=== PATIENT | female | born 1990 | race Caucasian/White ===

== ENCOUNTER 2019-12-27 17:40 | Outpatient (RCR) | payer OTHER, SELFPAY | END 2020-03-23 23:59 | disposition home or self-care (01) | LOC: ANHLAB 17:40 | PROVIDERS: Visit Provider Obstetrics & Gynecology | DX: N92.6 Irregular menstruation, unspecified (principal) | CPT/HCPCS: 36415; 84702 ==

== ENCOUNTER 2020-02-04 11:12 | Outpatient (CLI) | payer OTHER, SELFPAY ==
[2020-02-04 12:48] LABS: Hematocrit 36.2 % (37.0-47.0); Hemoglobin 12.2 g/dL (12.0-15.0); Mean Corpuscular HGB Conc 33.7 g/dl (32-36); Mean Corpuscular Hemoglobin 30.8 pg (26-34); Mean Corpuscular Volume 91.4 fl (80-100); Mean Platelet Volume 9.8 fl (7.4-10.4); Platelet Count Result 222 k/mm3 (150-375); Red Blood Count 3.96 M/mm3 (4.2-5.4); Red Cell Distribution Width 13.5 % (11.5-14.5); White Blood Count 8.3 K/mm3 (4.5-10.0)
[2020-02-04 13:02] LABS: Glucose 1 Hour PP 50gm Dose 81 mg/dL
[2020-02-04 14:11] LABS: HIV 1/2 Ab P24 Ag Result Negative (Negative); Hepatitis B Surface Antigen Negative (Negative); Rubella IgG Antibody 25.3 IU/ML
[2020-02-05 09:48] LABS: Rapid Plasma Reagin Non-Reactive (NonReactive)
== END 2020-02-04 11:13 | disposition home or self-care (01) ==
PROVIDERS: Visit Provider Obstetrics & Gynecology
DX: Z34.02 Encounter for supervision of normal first pregnancy, second trimester (principal); Z3A.00 Weeks of gestation of pregnancy not specified
CPT/HCPCS: 36415; 82947; 84702; 85027; 85461; 86592; 86644; 86703; 86747; 86762; 86787; 87086; 87340; G0432

== ENCOUNTER 2020-02-18 14:42 | Outpatient (CLI) | payer OTHER, SELFPAY ==
--- NOTE | ~2020-02-18 | US_ITS ---
EXAMINATION: US OB <=14 wk fetus w TV DATE: 02/18/2020 15:33 INDICATION: Evaluate well-being. Routine care. TECHNIQUE: Real-time transabdominal obstetric ultrasound. FINDINGS: No prior studies for comparison. The uterus measures 14.5 x 10.3 x 9.2 cm. There is an intrauterine gestational sac, with pole i dentified. The crown rump length measures 7.4 cm, which correlates with a estimated gestational age of 13 weeks 4 days. heart tones are identified measuring 147. IMPRESSION: 1. SL IUP with an EGA of 13 weeks, 4 days (EDC by current ultrasound of 08/21/2020). Reviewed, dictated and finalized at location A. IMPRESSION: 1. SL IUP with an EGA of 13 weeks, 4 days (EDC by current ultrasound of 021).
== END 2020-02-18 14:43 | disposition home or self-care (01) ==
PROVIDERS: Visit Provider Obstetrics & Gynecology
DX: Z34.02 Encounter for supervision of normal first pregnancy, second trimester (principal); Z3A.13 13 weeks gestation of pregnancy
CPT/HCPCS: 76801; 76817

== ENCOUNTER 2020-05-30 15:47 | Outpatient (CLI) | payer OTHER, SELFPAY ==
[2020-05-30 17:36] LABS: Basophils Percent Auto 0.3 % (0.2-1.2); Eosinophils Absolute Auto 0.1 K/mm3 (0-0.3); Eosinophils Percent Auto 0.5 % (0-4.4); Hematocrit 32.9 % (37.0-47.0); Immature Granulocyte Absolute 0.04 K/mm3 (0.00-0.031); Immature Granulocyte Percent A 0.4 % (0-0.5); Lymphocytes Absolute Auto 2.07 K/mm3 (0.9-3.2); Lymphocytes Percent Auto 18.6 % (18.3-44.2); Mean Corpuscular HGB Conc 33.4 g/dl (32-36); Mean Corpuscular Hemoglobin 30.6 pg (26-34); Mean Corpuscular Volume 91.6 fl (80-100); Mean Platelet Volume 9.9 fl (7.4-10.4); Monocytes Absolute Auto 0.4 K/mm3 (0.1-0.6); Monocytes Percent Auto 3.2 % (2.6-8.5); Neutrophils Absolute Auto 8.6 K/mm3 (1.3-6.7); Platelet Count Result 232 k/mm3 (150-375); Red Blood Count 3.59 M/mm3 (4.2-5.4); Red Cell Distribution Width 13.4 % (11.5-14.5); White Blood Count 11.1 K/mm3 (4.5-10.0)
[2020-05-30 17:48] LABS: Glucose 1 Hour PP 50gm Dose 122 mg/dL
[2020-05-30 18:28] LABS: HIV 1/2 Ab P24 Ag Result Negative (Negative)
== END 2020-05-30 15:48 | disposition home or self-care (01) ==
LOC: ANHLAB 15:50
PROVIDERS: Visit Provider Obstetrics & Gynecology
DX: Z34.92 Encounter for supervision of normal pregnancy, unspecified, second trimester (principal); Z3A.00 Weeks of gestation of pregnancy not specified
CPT/HCPCS: 36415; 82947; 85025; 86703; G0432

== ENCOUNTER 2020-08-11 16:30 | Inpatient (IN) | payer OTHER, SELFPAY ==
[2020-08-11] VITALS (71 sets, daily range): BP systolic 63–132; BP diastolic 38–76; PULSE 62–109; TEMP 36.6; O2SAT 98–100; BMI 42.3
--- NOTE | 2020-08-11 17:09 | LDADM ---
This patient, Connie Torres, was admitted to Labor/Delivery/Recovery 106 on 08/11/20 at 16:30. Plans for labor, pain management and were discussed with patient. Patient/family oriented to hospital policies and general routines including ID bracelet, bed and alarms, visiting hours, pain management, procedures, bathroom and other care routines, personal items, smoking policy, room service/diet and guest tray routines, security routines, and visiting hours. Patient/Family are encouraged to report perceived risks to care and to ask questions if they do not understand what they are told or what they should do. See OBIX for further documentation.
[2020-08-11 17:25] LABS: Basophils Percent Auto 0.3 % (0.2-1.2); Eosinophils Percent Auto 0.3 % (0-4.4); Hematocrit 32.8 % (37.0-47.0); Hemoglobin 10.9 g/dL (12.0-15.0); Immature Granulocyte Absolute 0.04 K/mm3 (0.00-0.031); Immature Granulocyte Percent A 0.3 % (0-0.5); Lymphocytes Absolute Auto 1.95 K/mm3 (0.9-3.2); Lymphocytes Percent Auto 16.5 % (18.3-44.2); Mean Corpuscular HGB Conc 33.2 g/dl (32-36); Mean Corpuscular Hemoglobin 30.2 pg (26-34); Mean Corpuscular Volume 90.9 fl (80-100); Mean Platelet Volume 10.5 fl (7.4-10.4); Monocytes Absolute Auto 0.5 K/mm3 (0.1-0.6); Monocytes Percent Auto 4.1 % (2.6-8.5); Neutrophils Absolute Auto 9.3 K/mm3 (1.3-6.7); Neutrophils Percent Auto 78.5 % (45.5-73.1); Platelet Count Result 218 k/mm3 (150-375); Red Blood Count 3.61 M/mm3 (4.2-5.4); Red Cell Distribution Width 14.3 % (11.5-14.5); White Blood Count 11.9 K/mm3 (4.5-10.0)
--- NOTE | 2020-08-11 18:51 | P.PNAN_ITS ---
Anes - Eval Pre Procedure Procedure: Labor epidural Date/Time: 08/11/20 18:51 Surgeon: Raj Preop Diagnosis: pain during labor Pre Op Diagnosis: Labor Patient Data Age: 30 Gender: F Height: 1.75 m Weight: 130 kg Last Vital Signs Temp 36.6 C 08/11/20 17:15 Pulse 91 08/11/20 18:46 BP 132/76 08/11/20 18:46 Allergies Allergy/AdvReac Type Severity Reaction Status Date / Time No Known Allergies Allergy Verified 07/22/20 15:55 Home Medications Medication Instructions Recorded Confirmed Type prenat.vits,patricia,[id number] 1 tablet PO DAILY 07/22/20 08/11/20 History [ #2] Laboratory Tests 08/11/20 08/11/20 08/11/20 17:01 17:01 17:01 WBC 11.9 K/mm3 H K/mm3 (4.5-10.0) RBC 3.61 M/mm3 L M/mm3 (4.2-5.4) Hgb 10.9 g/dL L g/dL (12.0-15.0) Hct 32.8 % L % (37.0-47.0) MCV 90.9 fl fl (80-100) MCH 30.2 pg pg (26-34) MCHC 33.2 g/dl g/dl (32-36) RDW 14.3 % % (11.5-14.5) Plt Count 218 k/mm3 k/mm3 (150-375) MPV 10.5 fl H fl (7.4-10.4) Immature Gran % (Auto) 0.3 % % (0-0.5) Neut % (Auto) 78.5 % H % (45.5-73.1) Lymph % (Auto) 16.5 % L % (18.3-44.2) [place] % (Auto) 4.1 % % (2.6-8.5) Eos % (Auto) 0.3 % % (0-4.4) Baso % (Auto) 0.3 % % (0.2-1.2) Lymph # (Auto) 1.95 K/mm3 K/mm3 (0.9-3.2) [place] # (Auto) 0.5 K/mm3 K/mm3 (0.1-0.6) Eos # (Auto) 0.0 K/mm3 K/mm3 (0-0.3) Baso # (Auto) 0.0 K/mm3 K/mm3 (0.0-0.1) Abs Immat Gran (auto) 0.04 K/mm3 H K/mm3 (0.00-0.031) Absolute Neuts (auto) 9.3 K/mm3 H K/mm3 (1.3-6.7) Absolute Nucleated RBC 0.0 K/mm3 K/mm3 (0.0-0.012) Nucleated RBC % 0.0 % % (0.0-0.2) RPR Pending Blood Type O Positive Antibody Screen Negative Patient hx anesthesia problems: none Family hx anesthesia problems: none PMFSH Past Medical History Medical History (Updated 08/11/20 @ 18:52 by Yamile To CRNA) IUP (intrauterine ), incidental Morbid obesity with BMI of 40.0-44.9, adult Family History Family History (Updated 07/22/20 @ 15:57 by Ramandeep Lund RN) Grandparent Family history of coronary artery disease Hypertension Breast cancer in female Mother Hypertension Sibling Hypertension Diabetes mellitus Social History Social History Smoking status: Never smoker Alcohol intake: never Substance use: never Spiritual care concerns: No Exam Day of Procedure 08/11/20 18:51
[2020-08-11] MEDS: LACTATED RINGERS 1,000 ML 125 ML IV CONT ×3 (20:42→23:45)
[2020-08-11] MEDS: OXYTOCIN 30 UNITS/NS 500 ML 30 UNITS/500 ML BAG IV CONT (21:19)
[2020-08-12] VITALS (39 sets, daily range): BP systolic 64–142; BP diastolic 31–86; PULSE 57–112; RESP 16–18; TEMP 36.4–36.8; O2SAT 98–100
[2020-08-12] MEDS: PHENYLEPHRINE 1,000 MCG/10 ML SYRINGE 100 MCG IV PUSH (00:44)
--- NOTE | 2020-08-12 02:21 | PM.OBPRVD ---
OB - Delivery Note Procedure Delivery date: 08/12/20 Procedure: Precipitous delivery by labor and delivery nursing team. Placenta spontaneously delivered. Upon my arrival to bedside, patient was comfortable to with on chest for skin to skin. Exam was performed to identify any lacerations and no lacerations were noted. Fundus was firm and bleeding was minimal. Patient tolerated the procedure well. All instrument and sponge counts were correct at the end of the procedure. Intrapartal events: None Induction method: per pitocin protocol Delivery monitor: external FHT and external uterine Route of delivery: Laceration Description: None Specimen: No Quantitative Blood Loss (ml): 145 Anesthesia type: Epidural Disposition: floor Jensen Baby Date of : 08/12/20 Time of : 01:36 Weeks of gestation at delivery: 38 Infant gender: Female presentation: vertex Placenta delivery description: Spontaneous cord vessel description: 3 Vessels score one minute: 9 score five minutes: 9 Narrative: Weight pending
--- NOTE | 2020-08-12 02:24 | PM.IMHP ---
H&P: HPI History of Present Illness Date/Time: 08/12/20 02:24 Chief Complaint: leaking of fluid Narrative: Connie Torres is a 30 year old female presented to L&D with reports of leaking fluid. Spontaneous rupture of membranes were confirmed in triage. Review of Systems Constitutional: Constitutional: Reports no additional constitutional complaints Eyes: Eyes: Reports no additional eye complaints ENT: Reports system reviewed and no additional complaints, except as documented Cardiovascular: Cardiovascular: Reports no additional cardiovascular complaints Respiratory: Respiratory: Reports no additional respiratory complaints Gastrointestinal: Gastrointestinal: Reports no additional gastrointestinal complaints Genitourinary: Genitourinary: Reports no additional female genitourinary complaints Musculoskeletal: Musculoskeletal: Reports no additional musculoskeletal complaints Integumentary/Breasts: Skin/Breast: Reports system reviewed and no additional complaints, except as docu Neurologic: Reports system reviewed and no additional complaints, except as documented Psychiatric: Psychiatric: Reports no additional psychiatric complaints Endocrine: Endocrine: Reports no additional endocrine complaints Hematologic/Lymphatic: Hematologic/Lymphatic: Reports no additional hematologic/lymphatic complaints Allergic/Immunologic: Allergic/Immunologic: Reports no additional allergic/immunologic complaints PMFSH Past Medical History Medical History IUP (intrauterine ), incidental Morbid obesity with BMI of 40.0-44.9, adult Family History Family History Grandparent Family history of coronary artery disease Hypertension Breast cancer in female Mother Hypertension Sibling Hypertension Diabetes mellitus Social History Social History Smoking status: Never smoker Alcohol intake: never Substance use: never Spiritual care concerns: No Meds Home Medications and Allergies Home Medications Medication Instructions Recorded Confirmed Type prenat.vits,patricia,[id number] 1 tablet PO DAILY 07/22/20 08/11/20 History [ #2] Allergies Allergy/AdvReac Type Severity Reaction Status Date / Time No Known Allergies Allergy Verified 07/22/20 15:55 Vital Signs Vital Signs - 24 hr 08/11/20 17:14 08/11/20 17:15 08/11/20 18:17 Temperature 36.6 C Pulse Rate 103 H 88 Blood Pressure 112/58 L 123/60 Pulse Oximetry 08/11/20 18:31 08/11/20 18:44 08/11/20 18:46 Temperature 36.6 C Pulse Rate 88 91 Blood Pressure 107/59 L 132/76 Pulse Oximetry 08/11/20 19:02 08/11/20 19:16 08/11/20 19:31 Temperature Pulse Rate 87 85 90 Blood Pressure 114/62 104/56 L 113/66 Pulse Oximetry 08/11/20 19:47 08/11/20 20:01 08/11/20 21:01 Temperature Pulse Rate 83 81 88 Blood Pressure 114/47 L 104/62 107/51 L Pulse Oximetry 08/11/20 21:46 08/11/20 21:51 08/11/20 21:53 Temperature Pulse Rate 67 76 Blood Pressure 109/59 L 109/58 L Pulse Oximetry 99 100 08/11/20 21:55 08/11/20 21:56 08/11/20 21:58 Temperature Pulse Rate 99 106 H Blood Pressure 116/71 101/56 L Pulse Oximetry 100 08/11/20 22:01 08/11/20 22:02 08/11/20 22:04 Temperature Pulse Rate 107 H 94 98 Blood Pressure 80/41 L 95/51 L 102/42 L Pulse Oximetry 100 08/11/20 22:06 08/11/20 22:07 08/11/20 22:10 Temperature Pulse Rate 88 89 Blood Pressure 96/47 L 101/49 L Pulse Oximetry 99 08/11/20 22:11 08/11/20 22:13 08/11/20 22:16 Temperature Pulse Rate 89 87 Blood Pressure 95/47 L 95/54 L Pulse Oximetry 98 99 08/11/20 22:19 08/11/20 22:21 08/11/20 22:22 Temperature Pulse Rate 79 89 Blood Pressure 92/46 L 87/42 L Pulse Oximetry 100 08/11/20 22:25 08/11/20 22:26 08/11/20
--- NOTE | 2020-08-12 02:28 | WPDHPUPDATE1 ---
History and Physical Update Update Date/Time: 08/12/20 02:28 History and Physical has been reviewed, including an updated exam of the patient. There are NO changes in the patient's condition. Risks, benefits, and alternatives have been discussed and questions answered. Patient agrees to proceed with procedure.
[2020-08-12] MEDS: WITCH HAZEL 40 PADS 1 PAD TOPICAL (04:28)
[2020-08-12] MEDS: BENZOCAINE 20% AER SPR (*SP) 56 GM CAN 1 SPRAY TOPICAL (04:29)
[2020-08-12] MEDS: IBUPROFEN 600 MG TABLET PO (05:46)
[2020-08-12] MEDS: LANOLIN (LANSINOH) 7.5 GM CREAM 1 APPLIC TOPICAL (05:47)
--- NOTE | 2020-08-12 05:54 | OBPPTRN ---
Patient transferred to post room #285 via wheelchair. Support person, Kody, present. Oriented to unit, room, information board, rooming in, admission packet and security measures. Patient verbalizes understanding.
[2020-08-12] MEDS: MULTIVIT/MIN/PREN/FOL AC/IRON TABLET 1 TAB PO (08:57)
[2020-08-12 10:49] LABS: Rapid Plasma Reagin Non-Reactive (NonReactive)
[2020-08-12] MEDS: ACETAMINOPHEN 325 MG TABLET 650 MG PO (14:40)
[2020-08-13] MEDS: TETANUS,DIPHTHERIA,AC PERTUSSIS ADULT (0.5 ML) BOOSTRIX IM (04:25)
[2020-08-13] MEDS: IBUPROFEN 600 MG TABLET PO (04:30)
[2020-08-13] MEDS: ACETAMINOPHEN 325 MG TABLET 650 MG PO (04:30)
[2020-08-13 04:42] LABS: Hematocrit 28.7 % (37.0-47.0); Hemoglobin 9.4 g/dL (12.0-15.0)
[2020-08-13 08:10] VITALS: BP 126/78; PULSE 65; RESP 18; TEMP 36.6; O2SAT 100
--- NOTE | 2020-08-13 08:54 | WPDANLDPN2 ---
Anes-Prog Note L&D Date/Time: 08/13/20 08:54 Comfortable throughout: labor and delivery Neuraxial method: epidural Epidural/Spinal procedure site: clean & non-tender Neuro status: Neuro function grossly intact. Cardiovascular status: normal Respiratory status: normal Airway patency: baseline Mental status: baseline Post-Op hydration status: normal Vital Signs: Last Vital Signs Temp 98.2 F 08/12/20 20:00 Pulse 78 08/12/20 20:00 Resp 16 08/12/20 20:00 BP 131/57 L 08/12/20 20:00 Pulse Ox 99 08/12/20 20:00 Pain score (VAS): 08/24 Post-procedural complaints: none Patient feedback: Patient satisfied with anesthetic care.
--- NOTE | 2020-08-13 09:12 | PC.NURSE ---
Consulted with patient, reviewed infant feeding cues, frequencies, duration of feedings, feeding elimination flow sheet, and signs of adequate intake. Demonstrated stimulation techniques to wake infant for feeding. Mom independently latched infant to breast. Reviewed positioning/alignment, holding breast and asymmetrical latch on. was able to latch correctly. Infant nursed eagerly, with steady draws and frequent swallowing noted. Reviewed signs of a correct latch, effective nursing and suck swallow ratio. Infant was able to maintain latch without discomfort to mother. Encouraged mom to break off when she slips down to swallow latch or to help by pushing more areola into 's mouth while feeding. Nipple care reviewed. Instructed mother to call out for RN assistance if she is unable to latch for feeding or she has discomfort with nursing. Instructed feeding should be initiated three hours from start of last feeding or if feeding cues are noted before. Mother voiced understanding of information shared. Mother verbalizes she is able to independently latch with appropriate positioning/alignment. She denies any nipple discomfort, is feeding as required and waking infant to feed if needed. has had 12 effective feedings in the past 24 hours, and is currently meeting outcomes for weight, output, jaundice and feeding frequencies. Mother states she feels confident to continue effective at home. Reviewed transition to breast milk, signs of adequate intake, and engorgement/relief. Instructed to call ICP if intake/output less than required. Reviewed community resources on the [facility] website and in the Mom/Baby guide. Information on outpatient services provided. Mother has no further questions at this time.
[2020-08-13] MEDS: POLYSACCHARIDE IRON COMPLEX 150 MG CAPSULE PO (10:28)
[2020-08-13] MEDS: MULTIVIT/MIN/PREN/FOL AC/IRON TABLET 1 TAB PO (10:28)
[2020-08-13] MEDS: DOCUSATE SODIUM 100 MG CAPSULE PO (10:28)
--- NOTE | 2020-08-13 12:32 | PM.OBDSVD ---
DS: Admitting Diagnosis Admitting Diagnosis Admitting Diagnosis: Spontaneous rupture of membranes DS: Discharge Diagnosis Discharge Diagnosis (1) (normal spontaneous vaginal delivery): Code(s): O80 - Encounter for full-term uncomplicated delivery Status: Acute OB - DS: Summary OB Procedures : None OB Procedures Intrapartum: Spontaneous Vag Delivery OB Procedures: : None Peripartum Data Infant Delivery Method: Natural Vaginal Laceration Description: None complications: none Status at Discharge Functional status at discharge: independent ambulation Overall status at discharge: patient is progressing back to baseline Time Spent with Patient Time attestation: Total time spent providing and/or coordinating discharge services: Exam Const: General: cooperative, healthy appearing, comfortable, no acute distress, well developed, alert, awake and Physically active HENMT: Head: normocephalic and atraumatic Eyes: General: appearance normal, both eyes and all related structures Resp: Effort & Inspection: normal respiratory effort, able to speak in complete sentences, normal respiratory pattern, no audible wheezes and no cough Cardio: Rate: regular rate GI: GI Palp: No abdominal tenderness, Yes Soft to palpation, No Tenderness to palpation present (GI) and No Guarding due to palpation present (GI) Psych: Appearance: grossly normal Mental Status: mental status grossly normal Speech and movement: Normal speech and movement present Affect: normal affect Attitude: cooperative Thought process: Normal thought process present Insight: Good insight present (Psych) Judgement: Good judgement present (Psych) DS: Data Data Completed and Pending Labs on day of discharge: Labs from last 24 hours 08/13/20 04:24 Hgb 9.4 L Hct 28.7 L Discharge Plan Discharge Attending physician on discharge: Chani Rosa Discharging Clinician: Chani Rosa Patient Disposition: Home, Self-Care Activity: may shower, no straining, as tolerated and pelvic rest Diet: regular Patient Instructions: Antibiotic Form Stand Alone Forms: General Discharge Information Follow-up/Referrals: Chani Rosa DO [Physician] - Discharge Medications: New polysaccharide iron complex 150 mg iron Capsule 150 mg PO BIDWM Qty: 90 RF: 0 docusate sodium 100 mg Capsule 100 mg PO BID PRN (Reason: Constipation) Qty: 60 RF: 0 ibuprofen 600 mg Tablet 600 mg PO Q6H PRN (Reason: Cramping) Qty: 90 RF: 0 Continued #2 Tablet 1 tablet PO DAILY RF: 0 Date of admission: 08/11/20 16:30 Primary Care Provider: PHYSICIAN NOT ON STAFF,NONSTAFF Admitting Provider: Kade Anthony Attending physician on admission: Kade Anthony Condition: Stable
[2020-08-14 08:56] VITALS: BP 118/68; PULSE 84; RESP 20; TEMP 36.8; O2SAT 99
--- NOTE | 2020-08-26 12:32 | PC.NURSE ---
Spoke to mom on 08/25/2020 Mom called in reporting that she would like to make an appt to have the baby's latch checked. Reports baby is not content after feedings at 9pm and midnight. States baby will be 2 weeks old on 08/26/20. [facility] has a wet and dirty diaper after each feeding. Mom states she feeds every 2-3 hours during the day and every 3-4 hours at night. Reports the baby is having yellow seedy stools with some earthy green mixed in at times. [facility] infant had returned to weight at her last peds appt on 08/19/20. Mom going to call back after she checks on childcare to set up an appt to come for a visit. In the meantime told mom she could supplement breastmilk or formula after the baby eats at the breast for these times and pump after the feedings to increase milk supply. Reviewed ways to get a deep latch. Mother called back on 08/26/2020 and scheduled for an appt on 08/28/2020 per her request.
== END 2020-08-13 14:30 | disposition home or self-care (01) | DRG 807 ==
LOC: ANHOB2 08-13 13:01 → ANHLDR 08-14 12:55 → ANHOB2 08-14 12:55
PROVIDERS: Admitting Provider Obstetrics & Gynecology; Visit Provider Obstetrics & Gynecology
DX: O62.3 Precipitate labor (principal); Z37.0 Single live birth; Z3A.38 38 weeks gestation of pregnancy; O99.214 Obesity complicating childbirth; E66.01 Morbid (severe) obesity due to excess calories; O99.344 Other mental disorders complicating childbirth; F41.9 Anxiety disorder, unspecified; Z23 Encounter for immunization
CPT/HCPCS: 36415; 84112; 85014; 85018; 85025; 86592; 86850; 86900; 86901; 90471; 90653; 90715; A9270; G0008; J2370; J2590; J2795; J7120

== ENCOUNTER 2020-08-28 11:17 | Outpatient (CLI) | payer OTHER, SELFPAY ==
--- NOTE | 2020-08-29 16:29 | PC.NURSE ---
1215 Mother here for LC consult, wanting assistance with latch issues; Baby born on 08/12/2021, normal vag delivery with no complications for mom or baby. Baby has been exclusively breast feeding. weight, 6-[address] Valle's office, 7/0 on 08/19/2020 Mother reports her milk is in; baby nurses q2-3h during the day, and q3-4 during the night and that baby seems satisfied after breast feedings. Mother reports baby has had 8 weights a day, and 8 stools in last 24 hours. Mother states she has not been pumping, but is using a Haack[employer] device to collect breast milk from the side baby is not nursing on. She is storing that milk; nurse also advised she could give infant that supplement as well. Baby awake and alert and appears well cared for. Mom has no c/o damaged nipples, or infection. Mother reports sometimes she has nipple pain with nursing, and hears clicking. Desires help with deeper latch. baby awakened easily; showing strong feeding cues; mother used cross-cradle position; baby latched easily, and mother reported comfortable latch; nurse taught mother how to gently adjust baby to deeper latch, after which mother could feel the difference and more comfortable breast feeding. baby nursed with rhythmic sucking and swallowing, maintaining deep latch. first side, baby nursed 8 minutes; mother switched sides, and nurse taught her football position; baby again latched easily, and mother again shown how to adjust baby to deeper latch; baby taken off the breast, and mother able to relatch infant and adjust to deeper latch independently. baby nursed another 10 minutes eagerly, and was very contented after this feeding. Mother stated she feels this visit very helpful in learning how to latch infant to deeper latch. she was encouraged to call again as needed, otherwise keep doing all she is doing, and keep f/u appointments with Dr. Valle as scheduled. suggested she could have baby's weight checked in a week if she is concerned. Today's weight, pre feeding, 7 9.2 3537gm post feeding 7-10.6 3478 gm Mother seemed pleased with the information and help shared, and voiced understanding.
== END 2020-08-28 11:18 | disposition home or self-care (01) ==
DX: Z71.89 Other specified counseling (principal)
CPT/HCPCS: 99202; G0463

== ENCOUNTER 2021-12-23 16:48 | Outpatient (CLI) | payer SELFPAY ==
--- NOTE | ~2021-12-23 | XR_ITS ---
EXAM: XR knee LT 3V HISTORY: M25.562 -FALL X 11/13/21,WORSENING PAIN THROUGHOUT PATELLA COMPARISON: None available FINDINGS: Normal mineralization. No fracture or dislocation. No lytic or blastic lesion. Moderate me dial joint space narrowing. Mild tricompartmental osteophytosis. No erosion or periosteal change. Sof t tissues within normal limits. Moderate volume joint fluid. IMPRESSION: Tricompartmental arthritis, moderate in the medial compartment. Moderate joint effusion. Reviewed, dictated and finalized at location K.
== END 2021-12-23 16:49 | disposition home or self-care (01) ==
PROVIDERS: PCP Family Medicine; Visit Provider Nurse Practitioner Family
DX: M17.12 Unilateral primary osteoarthritis, left knee (principal)
CPT/HCPCS: 73562

== ENCOUNTER 2022-01-08 15:43 | Outpatient (CLI) | payer SELFPAY ==
--- NOTE | ~2022-01-08 | MR_ITS ---
EXAMINATION: MR knee LT wo con DATE: 01/08/2022 16:38 INDICATION: Internal derangement of the left knee with left knee pain TECHNIQUE: Magnetic resonance imaging (MRI) of the left knee was performed without intravenous contra st. Sequences included coronal PD-weighted FSE, coronal PD-weighted FS FSE, sagittal T2-weighted FSE , sagittal PD-weighted FS FSE and axial PD weighted fat saturated FSE. COMPARISON: None. FINDINGS: Medial compartment: Medial meniscus is normal. There is a near full-thickness 8 x 5 mm cartilage defect at the anterior w eightbearing medial femoral condyle. There is some delamination along the bone chondral interface ext ending additional 4 mm posteriorly from the cartilage defect. Remaining cartilage in the medial marla rtment appears normal. Lateral compartment: Lateral meniscus is normal. Partial-thickness cartilage loss with smooth chondral surface along the p osterior weightbearing lateral femoral condyle. Small region of chondral ulceration along the anterom edial most weightbearing lateral femoral condyle at the junction with the inferior aspect of the late ral trochlea. Patellofemoral compartment: Deep chondral fissuring along the margins of a region of partial-thickness chondral ulceration extend ing across the caudal aspect of the lateral patellar facet and apical ridge. Small region of subartic ular marrow signal change at the central aspect of the lateral facet. Partial-thickness chondral fiss uring at the medial trochlea. Shallow chondral ulceration at the inferior aspect of the trochlear umesh ove. Ligaments and tendons: Anterior and posterior cruciate ligaments are normal. The medial collateral ligament and fibular alyssia ateral ligament complex are normal. The extensor mechanism is normal. The visualized medial and later al hamstring tendons as well as the iliotibial band are normal. Fluid: Moderate-sized left knee joint effusion. Partial suprapatellar plical band. No loose osteochondral anthony dies identified. Osseous/other: Small bone island at the posterior weightbearing medial femoral condyle. No fracture or pathologic ma rrow replacing process. IMPRESSION: 1. Mild tricompartmental osteoarthritis most notable for moderate to high-grade patellar chondromalac ia and small full/near full-thickness chondral defect at the anterior weightbearing medial femoral co ndyle. 2. Moderate-sized left knee joint effusion. Reviewed, dictated and finalized at location B. IMPRESSION: 1. Mild tricompartmental osteoarthritis most notable for moderate to high-grade patellar chondromalacia and small full/near full-thickness chondral defect at the anterior weightbearing medial femoral condyle. 2. Moderate-sized left knee joint effusion.
== END 2022-01-08 15:44 | disposition home or self-care (01) ==
LOC: ANHIMG 15:58
PROVIDERS: PCP Family Medicine; Visit Provider Nurse Practitioner Family
DX: M17.12 Unilateral primary osteoarthritis, left knee (principal); M25.462 Effusion, left knee; M94.262 Chondromalacia, left knee
CPT/HCPCS: 73721

== ENCOUNTER 2022-09-21 16:01 | Outpatient (CLI) | payer OTHER, SELFPAY ==
--- NOTE | ~2022-09-21 | XR_ITS ---
EXAMINATION: XR knee LT min 4V DATE: 09/21/2022 16:25 INDICATION: Left knee pain post injury one week prior TECHNIQUE: Anteroposterior, oblique, sunrise and crosstable lateral views of the left knee were obtai ayush COMPARISON: Left knee radiographs dated 12/23/2021 FINDINGS: Alignment is normal. No fracture. Small marginal osteophytes in all 3 compartments consistent with m ild tricompartmental osteoarthritis. No joint effusion/layering lipohemarthrosis. Soft tissues are un remarkable. IMPRESSION: 1. Mild tricompartmental osteoarthritis at the left knee. No joint effusion or acute osseous abnormal ity. Reviewed, dictated and finalized at location A. SOUND ENGINEER IMPRESSION: 1. Mild tricompartmental osteoarthritis at the left knee. No joint effusion or acute osseous abnormality.
== END 2022-09-21 16:02 | disposition home or self-care (01) ==
PROVIDERS: PCP Family Medicine; Visit Provider Nurse Practitioner Family
DX: M17.12 Unilateral primary osteoarthritis, left knee (principal)
CPT/HCPCS: 73564

== ENCOUNTER 2024-06-06 09:06 | Outpatient (CLI) | payer BC, SELFPAY ==
[2024-06-06 10:09] LABS: Basophils Percent Auto 0.6 % (0.2-1.2); Eosinophils Absolute Auto 0.1 K/mm3 (0-0.3); Eosinophils Percent Auto 1.3 % (0-4.4); Hematocrit 36.7 % (37.0-47.0); Hemoglobin 12.2 g/dL (12.0-15.0); Immature Granulocyte Absolute 0.01 K/mm3 (0.00-0.031); Immature Granulocyte Percent A 0.2 % (0-0.5); Lymphocytes Absolute Auto 1.87 K/mm3 (0.9-3.2); Lymphocytes Percent Auto 35.7 % (18.3-44.2); Mean Corpuscular HGB Conc 33.2 g/dl (32-36); Mean Corpuscular Hemoglobin 31.5 pg (26-34); Mean Corpuscular Volume 94.8 fl (80-100); Mean Platelet Volume 9.9 fl (7.4-10.4); Monocytes Absolute Auto 0.2 K/mm3 (0.1-0.6); Monocytes Percent Auto 4.6 % (2.6-8.5); Neutrophils Percent Auto 57.6 % (45.5-73.1); Platelet Count Result 246 k/mm3 (150-375); Red Blood Count 3.87 M/mm3 (4.2-5.4); Red Cell Distribution Width 12.7 % (11.5-14.5); White Blood Count 5.2 K/mm3 (4.5-10.0)
[2024-06-06 10:22] LABS: Alanine Aminotransferase 15 U/L (6-35); Albumin Level 4.2 g/dL (3.5-5.1); Alkaline Phosphatase 63 U/L (38-126); Anion Gap 10 mmol/L (4-12); Aspartate Amino Transferase 15 U/L (14-36); Bilirubin,Total 0.4 mg/dL (0.2-1.3); Blood Urea Nitrogen 16 mg/dL (7-17); Calcium 8.8 mg/dL (8.4-10.2); Carbon Dioxide 24 mmol/L (22-30); Chloride 105 mmol/L (98-107); Cholesterol 182 mg/dL (0-200); Estimated Glomerular Filt Rate > 60; Glucose 91 mg/dL (65-110); HDL Direct 35 mg/dL; Potassium 3.9 mmol/L (3.4-5.0); Sodium 139 mmol/L (137-145); Triglycerides 195 mg/dL (<150)
[2024-06-06 10:33] LABS: LDL Cholesterol Direct 88 mg/dL
[2024-06-06 10:47] LABS: Hemoglobin A1C 5.3 % (<5.7)
[2024-06-06 10:53] LABS: Free T4 Free Thyroxine 0.93 ng/mL (0.78-2.19)
== END 2024-06-06 09:07 | disposition home or self-care (01) ==
PROVIDERS: PCP Family Medicine
DX: Z00.00 Encounter for general adult medical examination without abnormal findings (principal); R53.83 Other fatigue
CPT/HCPCS: 36415; 80053; 80061; 83036; 84439; 84443; 85025